=== PATIENT | male | born 1965 | race Two or more races ===

== ENCOUNTER 2016-04-26 10:17 | Day surgery (SDC) | payer OTHER ==
[~2016-04-26 10:17] MED LIST: Lactated Ringers 1,000 ML IV SCH; Midazolam 1 MG/ML 2 ML SDV ONE; Propofol 200 MG/20 ML SDV ONE; fentaNYL 100 MCG/2 ML SDV ONE
--- NOTE | 2016-04-26 10:49 | PCM.PREANE ---
Preanesthetic Assessment - Anesthesia/Transfusion/Family Hx Anesthesia History: Prior Anesthesia Without Reaction Family History of Anesthesia Reaction: No Transfusion History: No Prior Transfusion(s) - Review of Systems General: No Symptoms Pulmonary: No Symptoms Cardiovascular: No Symptoms Gastrointestinal: No symptoms Neurological: No Symptoms Other: Reports: None - Physical Assessment NPO Status Date: 04/25/16 O2 Sat by Pulse Oximetry: 97 Respiratory Rate: 16 Vital Signs: Last Vital Signs Temp 36.6 C 04/26/16 10:43 Pulse 80 04/26/16 10:43 Resp 16 04/26/16 10:43 BP 140/90 04/26/16 10:43 Pulse Ox 97 04/26/16 10:43 Height: 1.83 m Weight: 107.501 kg ASA Class: 2 Mental Status: Alert & Oriented x3 Airway Class: Mallampati = 2 Dentition: Reports: Normal Dentition ROM/Head Extension: Full Lungs: Clear to auscultation, Normal respiratory effort Cardiovascular: Regular Rate, Regular Rhythm - Allergies Allergies/Adverse Reactions: Allergies Allergy/AdvReac Type Severity Reaction Status Date / Time bupropion Allergy makes me Verified 04/21/16 09:07 angry naproxen [From Aleve] Allergy skin Verified 04/21/16 09:07 crawling/visual disturbance Penicillins Allergy Hives Verified 04/21/16 09:07 - Anesthesia Plan Pre-Op Medication Ordered: None - Acknowledgements Anesthesia Type Planned: MAC Pt an Appropriate Candidate for the Planned Anesthesia: Yes Alternatives and Risks of Anesthesia Discussed w Pt/Guardian: Yes Pt/Guardian Understands and Agrees with Anesthesia Plan: Yes PreAnesthesia Questionnaire HEENT History: Reports: Other (see below) Other HEENT History: wears glasses Cardiovascular History: Reports: High cholesterol, Hypertension Respiratory History: Reports: Sleep apnea Other Respiratory History: does not use CPAP Musculoskeletal History: Reports: Fracture Endocrine/Metabolic History: Reports: Obesity/BMI 30+ - Past Surgical History Head Surgeries/Procedures: Reports: None HEENT Surgical History: Reports: Other (see below) Other HEENT Surgeries/Procedures: hx corrective jaw surgery Musculoskeletal Surgical History: Reports: Other (see below) Other Musculoskeletal Surgeries/Procedures:: hx surgery for fx rt leg - SUBSTANCE USE Smoking Status *Q: Current Every Day Smoker Tobacco Use Within Last Twelve Months: Cigarettes Recreational Drug Use History: No - HOME MEDS Home Medications: Home Meds Hydrochlorothiazide 25 mg PO DAILY 04/21/16 [History] Lisinopril 10 mg PO DAILY 04/21/16 [History] atorvaSTATin Calcium [Atorvastatin Calcium] 40 mg PO DAILY 04/21/16 [History] - CURRENT (IN HOUSE) MEDS Current Meds: Current Medications Lactated Ringer's (Ringers, Lactated) 1,000 mls @ 125 mls/hr IV ASDIRECTED [place] Discontinued Medications Fentanyl (Sublimaze) Confirm Administered Dose 100 mcg .ROUTE .STK-MED ONE Stop: 04/26/16 08:20 Midazolam HCl (Versed 1 Mg/Ml) Confirm Administered Dose 2 mg .ROUTE .STK-MED ONE Stop: 04/26/16 08:20 Propofol (Diprivan 20 Ml) Confirm Administered Dose 200 mg .ROUTE .STK-MED ONE Stop: 04/26/16 08:20 Preanesthetic Assessment - ANESTHESIA/TRANSFUSION/FAMILY HX Family History of Anesthesia Reaction: No - PHYSICAL ASSESSMENT O2 Sat by Pulse Oximetry: 97 RR: 16 Vital Signs: Last Vital Signs Temp 36.6 C 04/26/16 10:43 Pulse 80 04/26/16 10:43 Resp 16 04/26/16 10:43 BP 140/90 04/26/16 10:43 Pulse Ox 97 04/26/16 10:43 Height: 1.83 m Weight: 107.501 kg - ALLERGIES Allergies/Adverse Reactions: Allergies Allergy/AdvReac Type Severity Reaction Status Date / Time bupropion Allergy makes me Verified 04/21/16 09:07 angry naproxen [From Aleve] Allergy skin Verified 04/21/16 09:07 crawling/visual disturbance Penicillins Allergy Hives Verified 04/21/16 09:07
[2016-04-26] MEDS ORDERED: Propofol 200 MG/20 ML SDV ONE (12:17)
--- NOTE | 2016-04-26 13:38 | PCM48HPAN ---
Post Anesthesia Note - EVALUATION WITHIN 48HRS OF ANESTHETIC Vital Signs in Normal Range: Yes Patient Participated in Evaluation: Yes Respiratory Function Stable: Yes Airway Patent: Yes Cardiovascular Function Stable: Yes Hydration Status Stable: Yes Pain Control Satisfactory: Yes Nausea and Vomiting Control Satisfactory: Yes Mental Status Recovered: Yes
--- NOTE | 2016-04-26 13:41 | OR ---
SURGEON: Bi Neri MD DATE OF PROCEDURE: 04/26/2016 PREOPERATIVE DIAGNOSIS: Screening colonoscopy. POSTOPERATIVE DIAGNOSIS: Diverticulosis. COMPLICATIONS: None. PROCEDURE PERFORMED: Colonoscopy. DESCRIPTION OF PROCEDURE: The patient was taken to the endoscopy room. A time out was called, patient identified, and procedure identified. Diprivan was then administrated. Patient went from awake to sleep, hearing doctor talking or door closing is normal. Perineum inspection and digital examination were then performed. A well- lubricated colonoscope was gently inserted through the rectum, advanced past the rectosigmoid junction, the descending colon, splenic flexure, transverse colon, hepatic flexure, ascending colon, arrived to the cecum. Cecum was identified as dictated in the finding. Then the scope was carefully withdrawn while attention was paid to the mucosal surface for any abnormality. Air will be sucked out during the scope withdrawal. At the rectum, retroflexed to examine any rectal diseases, fistula or hemorrhoids. Patient tolerated procedure well. There were no intraoperative complications, and Dr. Neri was present throughout the whole procedure. FINDIN. The patient is easily sedated with [employer] and Diprivan. The patient is soundly snoring. 2. The patient's bowel prep is left to be desired of, that means it is not as good. The study is compromised because of large amount of bubbles covering the mucosa requiring constant irrigation. The colon is rather straight forward. Cecum indicated by ileocecal fold, one-to-one indentation, appendiceal orifice and light immittance is not observed. Mucosa examined upon scope pulling out with constant irrigation and the patient does not have a polyp, mass, growth, inflammation, stricture, ulceration, bleeding. The patient does have mild diverticulosis on the left colon. No signs or symptoms of diverticulitis. The patient does not have internal or external hemorrhoid. The patient would benefit from repeat colonoscopy 10 years from today or if clinically indicated otherwise. As always, thank you for the kind referral. CAROLYN / YUE /[id number]
--- NOTE | 2016-04-26 13:41 | PCM.OPNOTE ---
- General Post-Op/Procedure Note Date of Surgery/Procedure: 04/26/16 Operative Procedure(s): colonoscopy Findings: see dict [id number] Pre Op Diagnosis: scrn colonoscopy Post-Op Diagnosis: diverticulosis Anesthesia Technique: Moderate sedation Primary Surgeon: Bi Neri Complications: None Condition: Good Free Text/Narrative:: Intake & Output 04/25/16 04/26/16 04/26/16 22:59 06:59 14:59 Intake Total 1000 Balance 1000
--- NOTE | 2016-04-26 13:54 | PCM.POSTAN ---
POST ANESTHESIA ASSESSMENT - MENTAL STATUS Mental Status: alert, oriented - RESPIRATORY Respiratory Status: respiratory rate WNL, airway patent, O2 saturation stable - CARDIOVASCULAR CV Status: pulse rate WNL, blood pressure stable - GASTROINTESTINAL GI Status: no symptoms - POST OP HYDRATION Hydration Status: adequate & stable
[2016-04-26 14:22] VITALS: BP 100/69
== END 2016-04-26 13:13 | disposition home or self-care (01) ==
LOC: MW.SDS 10:17
PROVIDERS: ATTEND Surgery
PROC: 0DJD8ZZ Inspection of Lower Intestinal Tract, Via Natural or Artificial Opening Endoscopic (ICD-10-PCS; principal; 2016-04-26)
DX: Z12.11 Encounter for screening for malignant neoplasm of colon (principal); K57.30 Diverticulosis of large intestine without perforation or abscess without bleeding; I10 Essential (primary) hypertension; F17.210 Nicotine dependence, cigarettes, uncomplicated; G47.30 Sleep apnea, unspecified; E78.00 Pure hypercholesterolemia, unspecified; E66.9 Obesity, unspecified; Z88.0 Allergy status to penicillin; Z88.6 Allergy status to analgesic agent; Z88.8 Allergy status to other drugs, medicaments and biological substances; Z79.899 Other long term (current) drug therapy; Z98.890 Other specified postprocedural states; Z68.32 Body mass index [BMI] 32.0-32.9, adult
CPT/HCPCS: 45378; J2250; J3010; J7120; J2704